=== PATIENT | female | born 1960 | race Caucasian/White ===

== ENCOUNTER 2019-06-06 20:34 | Emergency (ER) | payer BC ==
[~2019-06-06] VITALS: Ht 165.1 cm; Wt 63.5 kg
[2019-06-06] MEDS ORDERED: ORPHENADRINE CITRATE 60 MG/2 ML VIAL. IM ONE (21:45)
[2019-06-06] MEDS ORDERED: KETOROLAC 30 MG/ML VIAL. IM ONE (21:45)
[2019-06-06 22:00] VITALS: BP 163/89
[2019-06-06 22:01] LABS: BILIRUBIN,URINE NEGATIVE (NEG); CLARITY,URINE CLEAR; COLOR,URINE YELLOW; NITRITE,URINE NEGATIVE (NEG); PROTEIN,URINE NEGATIVE (NEG-TRACE); UROBILINOGEN,URINE 0.2 mg/dL (0.2 mg/dL)
[2019-06-06 22:07] LABS: BACTERIA,URINE 0 /HPF (0-FEW)
[2019-06-06] MEDS ORDERED: NAPR-695 PO (22:38)
[2019-06-06] MEDS ORDERED: ORPH100T PO (22:38)
--- NOTE | 2019-06-06 22:38 | PHYS DOC ---
Past Medical History Past Medical History: No Pertinent History (ERIC ASKEW APRN) Past Surgical History: (ERIC ASKEW APRN) Alcohol Use: Occasionally Drug Use: None (ERIC ASKEW APRN) Adult General Chief Complaint Chief Complaint: GROIN PAIN HPI HPI Patient is a 58 year old female, accompanied by her , who presents to the emergency department with complaints of pain in her left buttock and left groin for the last 2 weeks. Patient states that the pain shoots down her leg at times. The pain increases with movement. She denies any saddle anesthesia, or loss of bowel or bladder control. She denies any increased urinary frequency, dysuria, hematuria, abdominal pain, or back pain. Patient denies any numbness, tingling, or weakness of her affected extremity. She states that earlier today she felt nauseated, but denies vomiting or diarrhea. Patient currently rates her discomfort a 4 out of 10 on the pain scale, there are no alleviating factors, the pain increases with movement and there is a tender area in her left buttock. All other ROS is neg unless otherwise noted in HPI. (ERIC ASKEW APRN) Review of Systems Review of Systems See Above (ERIC ASKEW APRN) Current Medications Current Medications Current Medications Medications (Trade) Dose Ordered Sig/Regina Start Time Stop Time Status Last Admin Dose Admin Ketorolac Tromethamine (Toradol 30mg Vial) 30 mg 1X ONCE 06/06/19 21:45 06/06/19 21:46 DC 06/06/19 21:49 30 MG Orphenadrine Citrate (Norflex) 60 mg 1X ONCE 06/06/19 21:45 06/06/19 21:46 DC 06/06/19 21:49 60 MG (MICHAEL PHELPS DO) Allergies Allergies Allergies Coded Allergies Type Severity Reaction Last Updated Verified Unable to Assess 06/06/19 No (MICHAEL PHELPS DO) Physical Exam Physical Exam See Above Constitutional: Well developed, well nourished, no acute distress, non-toxic appearance. [] HENT: Normocephalic, atraumatic, bilateral external ears normal, nose normal. [] Eyes: PERRLA, EOMI, conjunctiva normal, no discharge. [] Neck: Normal range of motion, no stridor. [] Cardiovascular:Heart rate regular rhythm, no murmur [] Lungs & Thorax: Bilateral breath sounds clear to auscultation [] Abdomen: Bowel sounds normal, soft, no tenderness, no masses, no pulsatile masses. [] Skin: Warm, dry, no erythema, no rash. [] Back: No bony tenderness, no CVA tenderness. [] Extremities: left medial gluteal TTP, no bony tenderness, no cyanosis, no clubbing, ROM intact, no edema; increased left thigh pain with left leg straight leg lift. [] Neurologic: Alert and oriented X 3, no focal deficits noted. [] Psychologic: Affect normal, judgement normal, mood normal. [] (ERIC ASKEW APRN) Current Patient Data Vital Signs Vital Signs Date Time Temp Pulse Resp B/P (MAP) Pulse Ox O2 Delivery O2 Flow Rate FiO2 06/06/19 22:00 67 163/89 (113) 99 Room Air 06/06/19 21:23 98.1 20 98.1 (MICHAEL PHELPS DO) Lab Values Laboratory Tests Test 06/06/19 21:55 Urine Collection Type Unknown Urine Color Yellow Urine Clarity Clear Urine pH 6.0 Urine Specific [place] <=1.005 Urine Protein Negative mg/dL (NEG-TRACE) Urine Glucose (UA) Negative mg/dL (NEG) Urine Ketones (Stick) Negative mg/dL (NEG) Urine Blood Negative (NEG) Urine Nitrite Negative (NEG) Urine Bilirubin Negative (NEG) Urine Urobilinogen Dipstick 0.2 mg/dL (0.2 mg/dL) Urine Leukocyte Esterase Trace (NEG) Urine RBC 1-2 /HPF (0-2) Urine WBC 1-4 /HPF (0-4) Urine Bacteria 0 /HPF (0-FEW) (MICHAEL PHELPS DO) EKG EKG [] (ERIC ASKEW APRN) Radiology/Procedures Radiology/Procedures [] (ERIC ASKEW APRN) Course & Med Decision Making Course & Med Decision Making Pertinent Labs and Imaging studies reviewed. (See chart for details) Patient is a 58-year-old female who presented to the emergency department with reports of left buttocks, groin, and thigh pain for the last 2 weeks that increases with movement. On exam her left buttock was tender over the piriformis head. Patient was given 60 mg of IM Norflex and 30 mg of IM Toradol in the emergency department she reported feeling better after those medications. Her UA was not concerning for a kidney stone or urinary tract infection. Patient was provided with piriformis strain exercises, and prescriptions for Phenergan and naproxen. She was encouraged to follow up with her primary care doctor next week, return to the ER symptoms worsen. Pt verbalized an understanding of home care, medications, follow-up, and return to ED instructions and was in agreement with the plan of care. [] (ERIC ASKEW APRN) Dragon Disclaimer Dragon Disclaimer This electronic medical record was generated, in whole or in part, using a voice recognition dictation system. (ERIC ASKEW APRN) Departure Departure Impression: Primary Impression: Strain of left piriformis muscle Additional Impression: Sciatica Disposition: HOME, SELF-CARE Condition: STABLE Referrals: DEJAN SPENCE [facility] [facility] (PCP) Patient Instructions: Piriformis Syndrome with [facility] Additional Instructions: Fill the prescription(s) and use as directed. Follow the recommended exercises provided. Follow up with primary care doctor next week, return to the ER if symptoms worsen. Scripts Naproxen (NAPROXEN) 375 Mg Tablet 1 TAB PO BID for 10 Days, #20 TAB 0 Refills Prov: ERIC ASKEW APRN 06/06/19 Orphenadrine Citrate (ORPHENADRINE CITRATE) 100 Mg Tablet.er 1 TAB PO BID for 10 Days, #20 TAB 0 Refills Prov: ERIC ASKEW APRN 06/06/19 Attending Signature Attending Signature I have reviewed the PA/COMMERCIAL ANNOUNCER's note and plan of care. I was available for consultation as needed during the patient's visit in the emergency department. I agree with the clinical impression, plan, and disposition. (MICHAEL PHELPS DO) Problem Qualifiers Primary Impression: Strain of left piriformis muscle Encounter type: initial encounter Qualified Codes: S76.312A - Strain of muscle, fascia and tendon of the posterior muscle group at thigh level, left thigh, initial encounter Additional Impression: Sciatica Laterality: left Qualified Codes: M54.32 - Sciatica, left side ERIC ASKEW APRN Jun 06, 2019 22:38 MICHAEL PHELPS DO Jun 07, 2019 01:38
== END 2019-06-06 22:48 | disposition home or self-care (01) ==
LOC: ER 20:34
DX: S76.312A Strain of muscle, fascia and tendon of the posterior muscle group at thigh level, left thigh, initial encounter (principal); M54.32 Sciatica, left side; Z98.890 Other specified postprocedural states; X50.9XXA Other and unspecified overexertion or strenuous movements or postures, initial encounter; Y93.89 Activity, other specified; Y92.89 Other specified places as the place of occurrence of the external cause; Y99.8 Other external cause status
CPT/HCPCS: 81001; 87086; 96372; 99284; J1885; J2360